=== PATIENT | male | born 1980 | race Caucasian/White ===

== ENCOUNTER 2017-06-18 13:19 | Observation (INO) | payer BC ==
[2017-06-18] MEDS ORDERED: Cardizem CD 120 MG PO STA (13:45)
--- NOTE | 2017-06-18 13:53 | ERPHSYRPT ---
- History of Present Illness Time Seen by Provider: 06/18/17 13:47 Source: patient, family Exam Limitations: no limitations Patient Subjective Stated Complaint: patient has melanie experiencing dizzyness nad chest pain off nad on for 3 days got lightheaded at mosque this morning came into the ER Triage Nursing Assessment: pt alert and orientedx3, gait steady, ambualtes by self, pupils perrla3, lung sounds clear, pulses equal bialteral radius, handgrips equal and strong, skin warm dry and intact. no other abnormalities noted Physician History: The patient is a 36-year-old male who comes in complaining that during mosque at about 11 AM this morning he became lightheaded and nearly passed out. He comes to the ER 2-1/2 hours later still not feeling well. 2 days ago he had some dizziness and mild chest pain. This lasted only briefly and resolved. Today he was also sweaty. His past medical history is unremarkable. Timing/Duration: today, hour(s) (2), intermittent Severity: moderate Modifying Factors: Improves With: nothing Associated Symptoms: other (light headed) Allergies/Adverse Reactions: No Known Drug Allergies Allergy (Unverified 03/03/13 20:37) Hx Tetanus, Diphtheria Vaccination/Date Given: Yes Hx Influenza Vaccination/Date Given: No Hx Pneumococcal Vaccination/Date Given: No Immunizations Up to Date: Yes - Review of Systems Constitutional: No Fever, No Chills Eyes: No Symptoms Ears, Nose, & Throat: No Symptoms Respiratory: No Cough, No Dyspnea Cardiac: Palpitations Abdominal/Gastrointestinal: No Abdominal Pain, No Nausea, No Vomiting, No Diarrhea Genitourinary Symptoms: No Dysuria Musculoskeletal: No Back Pain, No Neck Pain Skin: No Rash Neurological: No Dizziness, No Focal Weakness, No Sensory Changes Psychological: No Symptoms Endocrine: No Symptoms Hematologic/Lymphatic: No Symptoms Immunological/Allergic: No Symptoms All Other Systems: Reviewed and Negative - Past Medical History Pertinent Past Medical History: Yes Neurological History: No Pertinent History ENT History: No Pertinent History Cardiac History: No Pertinent History Respiratory History: No Pertinent History Endocrine Medical History: No Pertinent History Musculoskeletal History: No Pertinent History GI Medical History: No Pertinent History History: No Pertinent History Psycho-Social History: No Pertinent History Male Reproductive Disorders: No Pertinent History - Past Surgical History Past Surgical History: Yes Neuro Surgical History: No Pertinent History Cardiac: No Pertinent History Respiratory: No Pertinent History Gastrointestinal: No Pertinent History Genitourinary: No Pertinent History Musculoskeletal: Other Male Surgical History: No Pertinent History Other Surgical History: FINGER SX - Social History Smoking Status: Never smoker Exposure to second hand smoke: Yes Drug Use: none Patient Lives Alone: No - Nursing Vital Signs Nursing Vital Signs: Initial Vital Signs Temperature 98.1 F 06/18/17 13:19 Pulse Rate 99 H 06/18/17 13:19 Respiratory Rate 18 06/18/17 13:19 Blood Pressure 113/86 06/18/17 13:19 O2 Sat by Pulse Oximetry 96 06/18/17 13:19 Pain Scale Pain Intensity 0 - Physical Exam General Appearance: no apparent distress, alert Eye Exam: PERRL/EOMI, eyes nml inspection Ears, Nose, Throat Exam: normal ENT inspection, TMs normal, pharynx normal, moist mucous membranes Neck Exam: normal inspection, non-tender, supple, full range of motion Respiratory Exam: normal breath sounds, lungs clear, No respiratory distress Cardiovascular Exam: tachycardia Gastrointestinal/Abdomen Exam: soft, normal bowel sounds, No tenderness, No mass Rectal Exam: not done Back Exam: normal inspection, normal range of motion, No CVA tenderness, No vertebral tenderness Extremity Exam: normal inspection, normal range of motion, pelvis stable Neurologic Exam: alert, oriented x 3, cooperative, normal mood/affect, nml cerebellar function, nml station & gait, sensation nml, No motor deficits Skin Exam: normal color, warm, dry, No rash Lymphatic Exam: No adenopathy SpO2 Interpretation: normal SpO2: 96 Oxygen Delivery: Room Air - Course EKG Interpreted by Me: RATE, SVT, NORMAL AXIS, NORMAL ST-T, Other (after valsalva, SVT resolved.) - Radiology Exams Chest X-ray Interpretation: Interpreted by me, Negative Ordered Tests: Active Orders 24 hr Category Date Time Status EKG-ER Only STAT Care 06/18/17 13:42 Active IV Insertion STAT Care 06/18/17 13:42 Active CHEST 2 VIEWS (PA AND LAT) Stat Exams 06/18/17 13:42 Taken CBC W DIFF Stat Lab 06/18/17 13:35 Completed CMP Stat Lab 06/18/17 13:35 Completed Lactic Acid Stat Lab 06/18/17 14:53 Ordered TROPONIN Q3H Lab 06/18/17 13:35 Received TROPONIN Q3H Lab 06/18/17 16:45 Ordered TROPONIN Q3H Lab 06/18/17 19:45 Ordered TROPONIN Q3H Lab 06/18/17 22:45 Ordered TROPONIN Q3H Lab 06/19/17 01:45 Ordered Medication Summary Discontinued Medications Generic Name Dose Route Start Last Admin Trade Name Freq PRN Reason Stop Dose Admin Diltiazem HCl 120 mg 06/18/17 13:45 06/18/17 14:21 Cardizem Cd 120 Mg PO 06/18/17 13:46 120 mg DAILY STA Administration Lab/Rad Data: Laboratory Result Diagrams 06/18/17 13:35 06/18/17 13:35 Laboratory Results 06/18/17 06/18/17 Range/Units 13:35 13:35 WBC 10.5 (4.0-10.5) K/mm3 RBC 5.36 (4.1-5.6) M/mm3 Hgb 16.4 (12.5-18.0) gm/dl Hct 45.0 (42-50) % MCV 84.0 (78-100) fl MCH 30.6 (26-32) pg MCHC 36.4 H (32-36) g/dl RDW 12.0 (11.5-14.0) % Plt Count 289 (150-450) K/mm3 MPV 9.9 H (6-9.5) fl Gran % 60.6 (36.0-66.0) % Lymphocytes % 27.6 (24.0-44.0) % Monocytes % 11.0 (0.0-12.0) % Eosinophils % 0.5 (0.00-5.0) % Basophils % 0.3 (0.0-0.4) % Basophils # 0.03 (0-0.4) Sodium 134 L (136-145) mEq/L Potassium 4.0 (3.5-5.1) mEq/L Chloride 96 L (98-107) mEq/L Carbon Dioxide 23.9 (21-32) mEq/L Anion Gap 18.2 H (5-15) MEQ/L BUN 14 (9-20) mg/dL Creatinine 1.14 (0.55-1.30) mg/dl Estimated GFR > 60 ML/MIN Glucose 529 H* (70-110) MG/DL Calcium 8.8 (8.5-10.1) mg/dL Total Bilirubin 0.60 (0.2-1.0) mg/dL AST 20 (15-37) U/L ALT 30 (12-78) U/L Alkaline Phosphatase 95 (46-116) U/L Serum Total Protein 7.3 (6.4-8.2) gm/dL Albumin 3.6 (3.4-5.0) g/dL - Progress Progress: improved Progress Note: 06/18/17 13:51 Upon entry into the ER the first EKG showed the patient to be in SVT with a heart rate of 197 bpm. The patient performed Valsalva maneuvers with resolution of SVT. The post Valsalva EKG showed a heart rate of 100 bpm. Discussed with : Edin Will see patient in: hospital (observation) Counseled pt/family regarding: lab results, diagnosis, rad results - Departure Time of Disposition: 14:59 Departure Disposition: Observation (per Dr Jesus) Clinical Impression: SVT (supraventricular tachycardia), Hyperglycemia Condition: Stable Critical Care Time: No Referrals: LEONID TRISTAN, [employer] BENCH [Primary Care Provider] -
[2017-06-18 14:03] LABS: BASOPHIL % 0.3 % (0.0-0.4); Basophil (Absolute #) 0.03 (0-0.4); Eosinophil % 0.5 % (0.00-5.0); Eosinophil (Absolute #) 0.05 (0-0.5); Granulocyte Absolute (ANC) 6.37 (1.4-6.9); Granulocytes % 60.6 % (36.0-66.0); Hemoglobin 16.4 gm/dl (12.5-18.0); Lymphocyte (Absolute #) 2.89 (1.0-4.6); Lymphocytes % 27.6 % (24.0-44.0); Mean Corpuscular Hemoglobin 30.6 pg (26-32); Mean Corpuscular Hgb Concent. 36.4 g/dl (32-36); Mean Platelet Volume 9.9 fl (6-9.5); Monocyte (Absolute #) 1.15 (0.0-1.3); Platelet Count 289 K/mm3 (150-450); Red Blood Count 5.36 M/mm3 (4.1-5.6); White Blood Count 10.5 K/mm3 (4.0-10.5)
[2017-06-18 14:24] LABS: ALBUMIN 3.6 g/dL (3.4-5.0); ALKALINE PHOSPHATASE 95 U/L (46-116); ANION GAP 18.2 MEQ/L (5-15); BLOOD UREA NITROGEN 14 mg/dL (9-20); CHLORIDE 96 mEq/L (98-107); Calcium 8.8 mg/dL (8.5-10.1); Carbon Dioxide 23.9 mEq/L (21-32); Creatinine 1 1.14 mg/dl (0.55-1.30); EST GLOMERULAR FILTRATION RATE > 60 ML/MIN; SGOT/AST 20 U/L (15-37); SGPT/ALT 30 U/L (12-78); SODIUM 134 mEq/L (136-145); Total Protein 7.3 gm/dL (6.4-8.2)
[2017-06-18 14:42] LABS: Glucose 529 MG/DL (70-110)
[2017-06-18] MEDS ORDERED: NovoLIN R SQ ONE (14:58)
[2017-06-18] MEDS ORDERED: NovoLIN R ONE (15:09)
[2017-06-18] MEDS: Sodium Chloride 0.9% 1000 ML 1,000 ML IV SCH (16:26)
[2017-06-18] MEDS: NovoLIN R SQ PRN ×2 (17:35→20:07)
[2017-06-18] MEDS ORDERED: NovoLOG Insulin ONE (17:47)
[2017-06-18] MEDS ORDERED: Lantus Insulin SQ ONE (20:00)
--- NOTE | 2017-06-18 20:57 | XRAY ---
Indication: Cough. Comparison: None PA/lateral chest demonstrates normal heart, lungs, and bony thorax.
[2017-06-19 02:18] LABS: Granulocyte Absolute (ANC) 3.66 (1.4-6.9); Hematocrit 38.6 % (42-50); Hemoglobin 14.1 gm/dl (12.5-18.0); Mean Cell Volume 84.5 fl (78-100); Mean Corpuscular Hemoglobin 30.9 pg (26-32); Mean Corpuscular Hgb Concent. 36.5 g/dl (32-36); Mean Platelet Volume 9.3 fl (6-9.5); Platelet Count 257 K/mm3 (150-450); Red Blood Count 4.57 M/mm3 (4.1-5.6); Red Cell Distribution Width 11.9 % (11.5-14.0); White Blood Count 7.1 K/mm3 (4.0-10.5)
[2017-06-19] MEDS: Sodium Chloride 0.9% 1000 ML 1,000 ML IV SCH ×3 (02:22→23:09)
[2017-06-19 02:33] LABS: ANION GAP 11.3 MEQ/L (5-15); BLOOD UREA NITROGEN 18 mg/dL (9-20); CHLORIDE 103 mEq/L (98-107); Calcium 8.3 mg/dL (8.5-10.1); Carbon Dioxide 29.3 mEq/L (21-32); Creatinine 1 0.82 mg/dl (0.55-1.30); EST GLOMERULAR FILTRATION RATE > 60 ML/MIN; Glucose 251 MG/DL (70-110); SODIUM 140 mEq/L (136-145)
[2017-06-19 02:44] LABS: Risk Ratio 5.5
[2017-06-19 03:19] LABS: ATYPICAL LYMPHS 5 %; BAND 1 % (0.0-2.0); Eosinophil 3 % (0.00-3.0); Lymphocytes 29 % (24-44); Monocyte 11 % (0.0-12.0); Neutrophils 51 % (36.-66.); Total Cells Counted 100
[2017-06-19 03:20] LABS: Platelet Estimate NORMAL (NORMAL)
[2017-06-19] MEDS ORDERED: NovoLIN R ONE (03:45)
[2017-06-19] MEDS: NovoLIN R SQ PRN ×5 (03:47→21:27)
--- NOTE | 2017-06-19 08:40 | PCM.HP ---
History of Present Illness - Chief Complaint Chief Complaint: SVT, Positive CTNI History of Present Illness: is a 36 year old male who presented to the ER yesterday after alevism, he had intermittent chest pain and dizziness for the past 3 days. He was found to have SVT on arrival with elevated troponin, SVT apparently resolved with valsalva. Patient has been started on metoprolol and feels well now, has not had any issues on telemetry overnight. - Review of Systems Constitutional: No Fever, No Chills Respiratory: No Cough, No Short Of Breath Cardiac: Chest Pain, Palpitations Abdominal/Gastrointestinal: No Abdominal Pain, No Nausea, No Vomiting, No Diarrhea Skin: No Rash Neurological: Dizziness Psychological: No Symptoms All Other Systems: Reviewed and Negative Medications & Allergies Home Medications: Home Medication List No Reportable Medications [No Reported Medications] 06/18/17 [History Confirmed 06/18/17] Allergies/Adverse Reactions: Allergies Allergy/AdvReac Type Severity Reaction Status Date / Time No Known Drug Allergies Allergy Unverified 03/03/13 20:37 - Past Medical History Past Medical History: Yes Neurological History: No Pertinent History ENT History: No Pertinent History Cardiac History: High Cholesterol, Hypertension Respiratory History: No Pertinent History Endocrine Medical History: Diabetes Type II Musculoskelatal History: No Pertinent History GI Medical History: No Pertinent History History: No Pertinent History Pyscho-Social History: No Pertinent History Male Reproductive Disorders: No Pertinent History - Past Surgical History Past Surgical History: Yes Neuro Surgical History: No Pertinent History Cardiac History: No Pertinent History Respiratory Surgery: No Pertinent History GI Surgical History: No Pertinent History Genitourinary Surgical Hx: No Pertinent History Musculskeletal Surgical Hx: Other Male Surgical History: No Pertinent History Other Surgical History: FINGER SX - Social History Smoking Status: Never smoker Exposure to second hand smoke: Yes Alcohol: None Drug Use: none - Physical Exam Vital Signs: Vital Signs - 24 hr Temp Pulse Pulse Resp BP Pulse Ox 06/19/17 07:37 98.4 F 88 20 126/82 97 06/19/17 04:00 98.3 F 86 19 118/83 94 L 06/19/17 00:00 98.7 F 92 H 18 101/64 94 L 06/18/17 20:00 98.6 F 102 H 18 108/67 95 06/18/17 15:48 98.5 F 105 H 20 120/75 06/18/17 15:33 98.5 F 105 H 120/75 06/18/17 15:11 106 H 16 111/80 96 06/18/17 15:04 96 06/18/17 14:23 114 H 127/86 06/18/17 14:09 105 H 20 113/78 98 06/18/17 13:19 98.1 F 99 H 18 113/86 96 General Appearance: no apparent distress, alert Neurologic Exam: alert, oriented x 3, cooperative, normal mood/affect, nml cerebellar function, nml station & gait, sensation nml, No motor deficits Eye Exam: PERRL/EOMI, eyes nml inspection Respiratory Exam: normal breath sounds, lungs clear, No respiratory distress Cardiovascular Exam: regular rate/rhythm, normal heart sounds, normal peripheral pulses Gastrointestinal/Abdomen Exam: soft, normal bowel sounds, No tenderness, No mass Extremity Exam: normal inspection, normal range of motion, pelvis stable Skin Exam: normal color, warm, dry, No rash Results - Labs Lab/Micro Results: Accuchecks Date 06/19/17 Date 06/19/17 Date 06/18/17 Date 06/18/17 Time 04:00 Time 00:30 Time 20:00 Time 17:35 Accucheck Value: 254 Accucheck Value: 269 Accucheck Value: 258 Accucheck Value: 313 Lab Results-Last 24 Hours 06/18/17 06/18/17 06/18/17 Range/Units 17:10 19:51 23:35 WBC (4.0-10.5) K/mm3 RBC (4.1-5.6) M/mm3 Hgb (12.5-18.0) gm/dl Hct (42-50) % MCV (78-100) fl MCH (26-32) pg MCHC (32-36) g/dl RDW (11.5-14.0) % Plt Count (150-450) K/mm3 MPV (6-9.5) fl Segmented Neutrophils (36.-66.) % Band Neutrophils (0.0-2.0) % Lymphocytes (Manual) (24-44) % Monocytes (Manual) (0.0-12.0) % Eosinophils (Manual) (0.00-3.0) % Differential Comment Atypical Lymphocytes % Platelet Estimate (NORMAL) Sodium (136-145) mEq/L Potassium (3.5-5.1) mEq/L Chloride (98-107) mEq/L Carbon Dioxide (21-32) mEq/L Anion Gap (5-15) MEQ/L BUN (9-20) mg/dL Creatinine (0.55-1.30) mg/dl Estimated GFR ML/MIN Glucose (70-110) MG/DL Lactic Acid (0.4-2.0) Calcium (8.5-10.1) mg/dL Troponin I 0.194 H* 0.240 H* 0.247 H* (0.000-0.056) ng/ml Triglycerides (30-200) mg/dL Cholesterol (100-200) mg/dL LDL Cholesterol (5-99) mg/dL HDL Cholesterol (35-60) mg/dL Heart Disease Risk Ratio 06/19/17 06/19/17 06/19/17 Range/Units 02:12 02:12 02:12 WBC 7.1 (4.0-10.5) K/mm3 RBC 4.57 (4.1-5.6) M/mm3 Hgb 14.1 (12.5-18.0) gm/dl Hct 38.6 L (42-50) % MCV 84.5 (78-100) fl MCH 30.9 (26-32) pg MCHC 36.5 H (32-36) g/dl RDW 11.9 (11.5-14.0) % Plt Count 257 (150-450) K/mm3 MPV 9.3 (6-9.5) fl Segmented Neutrophils 51 (36.-66.) % Band Neutrophils 1 (0.0-2.0) % Lymphocytes (Manual) 29 (24-44) % Monocytes (Manual) 11 (0.0-12.0) % Eosinophils (Manual) 3 (0.00-3.0) % Differential Comment NORMAL Atypical Lymphocytes 5 % Platelet Estimate NORMAL (NORMAL) Sodium 140 (136-145) mEq/L Potassium 4.0 (3.5-5.1) mEq/L Chloride 103 (98-107) mEq/L Carbon Dioxide 29.3 (21-32) mEq/L Anion Gap 11.3 (5-15) MEQ/L BUN 18 (9-20) mg/dL Creatinine 0.82 (0.55-1.30) mg/dl Estimated GFR > 60 ML/MIN Glucose 251 H (70-110) MG/DL Lactic Acid (0.4-2.0) Calcium 8.3 L (8.5-10.1) mg/dL Troponin I 0.213 H* (0.000-0.056) ng/ml Triglycerides (30-200) mg/dL Cholesterol (100-200) mg/dL LDL Cholesterol (5-99) mg/dL HDL Cholesterol (35-60) mg/dL Heart Disease Risk Ratio 06/19/17 06/19/17 Range/Units 02:12 02:20 WBC (4.0-10.5) K/mm3 RBC (4.1-5.6) M/mm3 Hgb (12.5-18.0) gm/dl Hct (42-50) % MCV (78-100) fl MCH (26-32) pg MCHC (32-36) g/dl RDW (11.5-14.0) % Plt Count (150-450) K/mm3 MPV (6-9.5) fl Segmented Neutrophils (36.-66.) % Band Neutrophils (0.0-2.0) % Lymphocytes (Manual) (24-44) % Monocytes (Manual) (0.0-12.0) % Eosinophils (Manual) (0.00-3.0) % Differential Comment Atypical Lymphocytes % Platelet Estimate (NORMAL) Sodium (136-145) mEq/L Potassium (3.5-5.1) mEq/L Chloride (98-107) mEq/L Carbon Dioxide (21-32) mEq/L Anion Gap (5-15) MEQ/L BUN (9-20) mg/dL Creatinine (0.55-1.30) mg/dl Estimated GFR ML/MIN Glucose (70-110) MG/DL Lactic Acid 0.9 (0.4-2.0) Calcium (8.5-10.1) mg/dL Troponin I (0.000-0.056) ng/ml Triglycerides 167 (30-200) mg/dL Cholesterol 180 (100-200) mg/dL LDL Cholesterol 127 H (5-99) mg/dL HDL Cholesterol 33 L (35-60) mg/dL Heart Disease Risk Ratio 5.5 Accuchecks Date 06/19/17 Date 06/19/17 Date 06/18/17 Date 06/18/17 Time 04:00 Time 00:30 Time 20:00 Time 17:35 Accucheck Value: 254 Accucheck Value: 269 Accucheck Value: 258 Accucheck Value: 313 Assessment/Plan (1) SVT (supraventricular tachycardia) Current Visit: Yes Status: Acute Assessment & Plan: resolved, continue lopressor at this time Code(s): I47.1 - SUPRAVENTRICULAR TACHYCARDIA (2) Elevated troponin Current Visit: Yes Status: Acute Assessment & Plan: trending down since resolution of SVT, will continue to monitor. Dr Cassidy will have f/u as outpatient. Code(s): R74.8 - ABNORMAL LEVELS OF OTHER SERUM ENZYMES (3) Uncontrolled type 2 diabetes mellitus Current Visit: Yes Status: Acute Assessment & Plan: will restart metformin and currently on lantus. patient has been off of meds for over a year, simply noncompliant. discussed need for followup and risks of uncontrolled diabetes. Code(s): E11.65 - TYPE 2 DIABETES MELLITUS WITH HYPERGLYCEMIA
[2017-06-19] MEDS ORDERED: Cardizem CD 120 MG PO SCH (10:00)
[2017-06-19] MEDS: Ecotrin 325 MG PO SCH (10:07)
[2017-06-19] MEDS: Lopressor 25MG Tab PO SCH ×2 (10:07→21:27)
[2017-06-19] MEDS: Lantus Insulin SQ SCH (10:08)
[2017-06-19] MEDS: Glucophage 500 MG PO SCH ×2 (10:13→16:45)
--- NOTE | 2017-06-19 11:22 | CONS ---
CONSULT DATE: 06/18/2017 BRIEF HISTORY: This is a 36 year-old male who was seen because of narrow QRS tachycardia and chest pain. The symptoms started while he was in yarsanism. He started to have some episodes of palpitation associated with some vague chest discomfort. He felt lightheaded. He eventually ended up in the emergency room. Initial EKG did show narrow QRS tachycardia which appears to be supraventricular in origin. His heart rate has come down. Initially his blood sugar was in the 500's. The patient stated that he has been having intermittent chest pain for a few weeks now which he described as vague unrelated to effort with no increase in frequency or duration. He has never had myocardial infarction or heart failure. He denies any paroxysmal nocturnal dyspnea or orthopnea. No syncopal attacks. CARDIAC RISK FACTORS: He has diabetes. He does not smoke. No hypertension. He has hyperlipidemia. FAMILY HISTORY: Positive for coronary artery disease. Father diagnosed with some form of coronary artery disease and had recent stroke and stay in the [facility]. REVIEW OF SYSTEMS: IMPREGNATOR HELPER: There is no history of stroke. No seizures. No chronic headache. No visual disturbance. RESPIRATORY: No chronic cough. No hemoptysis. GI: He denies nausea. No vomiting. No history of peptic ulcer or colon disorder. : Negative for dysuria or hematuria. PERIPHERAL VASCULAR: Negative for deep venous thrombosis or claudication. MUSCULOSKELETAL: Some joint pains. SKIN: No active dermatological problems. ENDOCRINE: No history of thyroid disorder in the past. CONSTITUTIONAL: No significant weight gain or weight loss. PAST SURGICAL HISTORY: Finger surgery. MEDICATIONS: Diltiazem 120 mg daily, insulin coverage. SOCIAL HISTORY: He is engaged. 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 There is no significant alcohol intake. PHYSICAL EXAMINATION: His blood pressure is 111/80, heart rate 106, respirations about 16. GENERAL: The patient is a young male who is alert, oriented, who is not in any form of distress. He is currently chest pain free. HEENT: Unremarkable. NECK: No carotid bruit. CHEST: The breath sounds are clear. CARDIAC: Heart tones are clear. No audible gallop. The rhythm is regular. There is apical systolic murmur. ABDOMEN: Soft with normal bowel sounds. EXTREMITIES: Negative for edema. Palpable distal pulses. LAB DATA AND DIAGNOSTIC TESTS: The EKG shows supraventricular tachycardia. Subsequent EKG showed normal sinus rhythm, no significant ST-T displacement. IMPRESSION: In essence the patient had an episode of supraventricular tachycardia which was associated with some chest pain and the chest pain is most likely secondary to tachyarrhythmia and that has resolved. His troponin I is mildly elevated and most likely related to the tachycardia. He does have multiple cardiac risk factors. If he remains hemodynamically stable and angina-free will schedule him for a stress test otherwise if his troponin I's continuously rise significantly we might proceed with a heart cath. Meanwhile, the patient will be placed on aspirin. Lipid panel is ordered. Will switch him to beta heidi. It was emphasized to the patient about the need to become compliant particularly in regards to the management of his diabetes and it is likely the arrhythmia triggered metabolic related to his diabetes. I will follow up with you.
[2017-06-20] MEDS: NovoLIN R SQ PRN ×2 (00:04→04:06)
[2017-06-20 05:54] LABS: BASOPHIL % 0.4 % (0.0-0.4); Basophil (Absolute #) 0.02 (0-0.4); Eosinophil % 1.3 % (0.00-5.0); Eosinophil (Absolute #) 0.07 (0-0.5); Granulocytes % 60.6 % (36.0-66.0); Hematocrit 39.8 % (42-50); Hemoglobin 14.5 gm/dl (12.5-18.0); Lymphocyte (Absolute #) 1.44 (1.0-4.6); Lymphocytes % 25.7 % (24.0-44.0); Mean Cell Volume 85.2 fl (78-100); Mean Corpuscular Hgb Concent. 36.4 g/dl (32-36); Mean Platelet Volume 9.3 fl (6-9.5); Monocyte (Absolute #) 0.67 (0.0-1.3); Platelet Count 244 K/mm3 (150-450); Red Blood Count 4.67 M/mm3 (4.1-5.6); Red Cell Distribution Width 11.8 % (11.5-14.0); White Blood Count 5.6 K/mm3 (4.0-10.5)
[2017-06-20 06:55] LABS: ANION GAP 11.3 MEQ/L (5-15); BLOOD UREA NITROGEN 11 mg/dL (9-20); CHLORIDE 105 mEq/L (98-107); Calcium 8.3 mg/dL (8.5-10.1); Creatinine 1 0.62 mg/dl (0.55-1.30); EST GLOMERULAR FILTRATION RATE > 60 ML/MIN; Glucose 167 MG/DL (70-110); Potassium 4.1 mEq/L (3.5-5.1); SODIUM 140 mEq/L (136-145); TROPONIN 0.046 ng/ml (0.000-0.056)
[2017-06-20 07:45] VITALS: BP 123/83; PULSE 88; O2SAT 96
[2017-06-20] MEDS: Glucophage 500 MG PO SCH (08:01)
[2017-06-20] MEDS: Lantus Insulin SQ SCH (09:22)
[2017-06-20] MEDS: Ecotrin 325 MG PO SCH (09:22)
[2017-06-20] MEDS: Lopressor 25MG Tab PO SCH (09:22)
--- NOTE | 2017-06-20 10:08 | PCM.DS ---
Discharge Summary Date of Admission: 06/18/17 15:30 Admitting Physician: FISH MEREDITH Consults: Consults on Case 06/18/17 17:59 Consult Cardiology ROUTINE Primary Care Provider: JAG AMBROSIO PATEL Allergies Allergies No Known Drug Allergies Allergy (Unverified 03/03/13 20:37) Hospital Summary - Hospital Course Hospital Course: patient was admitted with SVT, had a positive troponin on arrival. SVT resolved with valsalva. He has been in normal rhythm, was seen by cardiology and plans to f/u as outpatient. troponin has trended down. - Vitals & Intake/Output Vital Signs: Vital Signs Temperature 97.9 F 06/20/17 07:44 Pulse Rate 88 06/20/17 07:44 Respiratory Rate 18 06/20/17 07:44 Blood Pressure 123/83 06/20/17 07:44 O2 Sat by Pulse Oximetry 96 06/20/17 07:44 Intake & Output: Intake & Output 06/17/17 06/18/17 06/19/17 06/20/17 11:59 11:59 11:59 11:59 Intake Total 3018 2520 Balance 3018 2520 Weight 81.6 kg - Lab Result Diagrams: 06/20/17 05:44 06/20/17 05:44 Lab Results-Last 24 Hrs: Accuchecks Date 06/20/17 Date 06/20/17 Date 06/19/17 Date 06/19/17 Date 06/19/17 Time 05:02 Time 00:00 Time 20:00 Time 16:00 Time 12:00 Accucheck Value: 162 Accucheck Value: 202 Accucheck Value: 276 Accucheck Value: 297 Accucheck Value: 241 Accucheck Value: 293 Lab Results-Last 24 Hours 06/19/17 06/19/17 06/20/17 Range/Units 08:42 11:05 05:44 WBC 5.6 (4.0-10.5) K/mm3 RBC 4.67 (4.1-5.6) M/mm3 Hgb 14.5 (12.5-18.0) gm/dl Hct 39.8 L (42-50) % MCV 85.2 (78-100) fl MCH 31.0 (26-32) pg MCHC 36.4 H (32-36) g/dl RDW 11.8 (11.5-14.0) % Plt Count 244 (150-450) K/mm3 MPV 9.3 (6-9.5) fl Gran % 60.6 (36.0-66.0) % Lymphocytes % 25.7 (24.0-44.0) % Monocytes % 12.0 (0.0-12.0) % Eosinophils % 1.3 (0.00-5.0) % Basophils % 0.4 (0.0-0.4) % Basophils # 0.02 (0-0.4) Sodium (136-145) mEq/L Potassium (3.5-5.1) mEq/L Chloride (98-107) mEq/L Carbon Dioxide (21-32) mEq/L Anion Gap (5-15) MEQ/L BUN (9-20) mg/dL Creatinine (0.55-1.30) mg/dl Estimated GFR ML/MIN Glucose (70-110) MG/DL Hemoglobin A1c 11.0 H (4.5-6.0) Calcium (8.5-10.1) mg/dL Magnesium (1.8-2.4) mg/dL Troponin I 0.081 H* (0.000-0.056) ng/ml 06/20/17 Range/Units 05:44 WBC (4.0-10.5) K/mm3 RBC (4.1-5.6) M/mm3 Hgb (12.5-18.0) gm/dl Hct (42-50) % MCV (78-100) fl MCH (26-32) pg MCHC (32-36) g/dl RDW (11.5-14.0) % Plt Count (150-450) K/mm3 MPV (6-9.5) fl Gran % (36.0-66.0) % Lymphocytes % (24.0-44.0) % Monocytes % (0.0-12.0) % Eosinophils % (0.00-5.0) % Basophils % (0.0-0.4) % Basophils # (0-0.4) Sodium 140 (136-145) mEq/L Potassium 4.1 (3.5-5.1) mEq/L Chloride 105 (98-107) mEq/L Carbon Dioxide 28.0 (21-32) mEq/L Anion Gap 11.3 (5-15) MEQ/L BUN 11 (9-20) mg/dL Creatinine 0.62 (0.55-1.30) mg/dl Estimated GFR > 60 ML/MIN Glucose 167 H (70-110) MG/DL Hemoglobin A1c (4.5-6.0) Calcium 8.3 L (8.5-10.1) mg/dL Magnesium 1.7 L (1.8-2.4) mg/dL Troponin I 0.046 (0.000-0.056) ng/ml Micro Results-Entire Visit: Accuchecks Date 06/20/17 Date 06/20/17 Date 06/19/17 Date 06/19/17 Date 06/19/17 Time 05:02 Time 00:00 Time 20:00 Time 16:00 Time 12:00 Accucheck Value: 162 Accucheck Value: 202 Accucheck Value: 276 Accucheck Value: 297 Accucheck Value: 241 Accucheck Value: 293 - Procedures and Test Procedures and Tests throughout Hospitalization: Therapy Orders & Screens 06/18/17 17:58 EKG STAT Comment: Diagnosis: SVT, Positive CTNI Discharge Exam General Appearance: no apparent distress, alert Skin Exam: normal color, warm, dry Eye Exam: PERRL, EOMI, eyes nml inspection Respiratory Exam: normal breath sounds, lungs clear, No respiratory distress Cardiovascular Exam: regular rate/rhythm, normal heart sounds Gastrointestinal/Abdomen Exam: soft, No tenderness, No mass Extremity Exam: normal inspection, normal range of motion Final Diagnosis/Problem List - Final Discharge Diagnosis/Problem (1) SVT (supraventricular tachycardia) Current Visit: Yes Status: Acute Assessment & Plan: resolved, discontinue home on metoprolol (2) Elevated troponin Current Visit: Yes Status: Acute (3) Uncontrolled type 2 diabetes mellitus Current Visit: Yes Status: Acute Assessment & Plan: restart on po meds. - Discharge Disposition: Home, Self-Care Condition: Stable Prescriptions: New Metformin HCl 500 mg [Glucophage 500 MG] 500 mg PO BIDWM #60 tablet Glipizide 5 mg [Glucotrol 5 MG] 5 mg PO DAILY #30 tablet Metoprolol Tartrate 25 mg [Lopressor 25MG Tab] 25 mg PO BID #60 tab Follow up with: JAG AMBROSIO MD [Primary Care Provider] - 1 Week GENI FROST [ACTIVE STAFF] - 1 Week
== END 2017-06-20 11:15 | disposition home or self-care (01) ==
LOC: ED 13:19 → MED SURG 15:30
PROVIDERS: ADMIT Internal Medicine; ATTEND Family Medicine
DX: I47.1 Supraventricular tachycardia (principal); R79.89 Other specified abnormal findings of blood chemistry; I10 Essential (primary) hypertension; E78.00 Pure hypercholesterolemia, unspecified; E11.65 Type 2 diabetes mellitus with hyperglycemia
CPT/HCPCS: 36000; 36415; 71046; 80048; 80053; 80061; 82962; 83036; 83605; 83721; 83735; 84484; 85025; 93005; 93268; 96360; 96372; 99285; G0378; A9270-GY

== ENCOUNTER 2018-12-28 11:47 | Observation (INO) | payer BC ==
[2018-12-28] MEDS ORDERED: Sodium Chloride 0.9% 1000 ML 1,000 ML IV SCH (12:45)
[2018-12-28 13:27] LABS: Hematocrit 39.2 % (42-50); Hemoglobin 13.5 gm/dl (12.5-18.0); Mean Cell Volume 89.1 fl (78-100); Mean Corpuscular Hemoglobin 30.7 pg (26-32); Mean Corpuscular Hgb Concent. 34.4 g/dl (32-36); Mean Platelet Volume 8.8 fl (6-9.5); Platelet Count 343 K/mm3 (150-450); Red Cell Distribution Width 11.7 % (11.5-14.0); White Blood Count 8.5 K/mm3 (4.0-10.5)
[2018-12-28 13:28] LABS: ALKALINE PHOSPHATASE 66 U/L (38-126); AMYLASE 62 U/L (30-110); ANION GAP 15.3 MEQ/L (5-15); BLOOD UREA NITROGEN 11 mg/dL (9-20); CHLORIDE 102 mmol/L (98-107); Carbon Dioxide 25 mmol/L (22-30); Creatinine 1 0.58 mg/dL (0.66-1.25); Glucose 240 mg/dL (74-106); Potassium 3.5 mmol/L (3.5-5.1); SGOT/AST 32 U/L (17-59); SGPT/ALT 19 U/L (0-50); SODIUM 139 mmol/L (137-145); Total Protein 7.3 g/dL (6.3-8.2)
[2018-12-28] MEDS ORDERED: Lactated Ringers 1,000 ML IV ONE (13:56)
[2018-12-28] MEDS: CEFAZOLIN 2 GM-D5W BAG** 2 GM/50 ML ML IV SCH ×2 (13:56→21:57)
[2018-12-28] MEDS ORDERED: Sensorcaine 0.25% 10 ML ONE (13:56)
[2018-12-28 14:00] LABS: BAND 3 % (0.0-2.0); Eosinophil 5 % (0.00-3.0); Lymphocytes 25 % (24-44); Monocyte 8 % (0.0-12.0); Neutrophils 59 % (36.-66.); Total Cells Counted 100
[2018-12-28 14:01] LABS: Platelet Estimate NORMAL (NORMAL)
[2018-12-28 14:02] LABS: ANISOCYTOSIS 1+; Granulocyte Absolute (ANC) 5.28 (1.4-6.9)
[2018-12-28] MEDS ORDERED: Lactated Ringers 1,000 ML IV SCH (14:30)
[2018-12-28] MEDS ORDERED: MEFOXIN 2 GM PREMIX** 2 GM/50 ML ML IV SCH (15:00)
[2018-12-28 16:16] LABS: Appearance CLEAR (CLEAR); Bilirubin NEGATIVE (NEGATIVE); Blood NEGATIVE Ery/ul (0-5); Glucose >=500 mg/dL (NEGATIVE); Ketones NEGATIVE (NEGATIVE); Leukocyte Esterase NEGATIVE (NEGATIVE); Nitrite NEGATIVE (NEGATIVE); Protein,Urine Dip NEGATIVE (Negative); Specific Gravity 1.033 (1.005-1.025); Urobilinogen NEGATIVE mg/dL (0-1)
[2018-12-28 16:27] LABS: Bacteria NONE SEEN /HPF (NEGATIVE); RBC NONE SEEN /HPF (0-2)
[2018-12-28] MEDS ORDERED: DIPRIVAN 200 MG/20 ML IV ONE (16:29)
[2018-12-28] MEDS ORDERED: Zemuron 100 MG/10 ML ONE ×2 (16:29→17:19)
[2018-12-28] MEDS ORDERED: Quelicin Fliptop 200 MG/10 ML ONE (16:29)
[2018-12-28] MEDS ORDERED: SUBLIMAZE 100 MCG/2 ML ONE ×2 (16:30→18:29)
[2018-12-28] MEDS ORDERED: BRIDION 200MG/2ML IV ONE (16:42)
[2018-12-28] MEDS ORDERED: Zofran 4 MG/2 ML VIAL ONE ×3 (16:42→19:16)
[2018-12-28] MEDS ORDERED: TORAdol 30 mg Injection ONE (16:42)
[2018-12-28] MEDS ORDERED: Decadron 4 MG INJ ONE (16:42)
[2018-12-28] MEDS ORDERED: DILAUDID 2 MG INJECTION ONE (18:30)
[2018-12-28] MEDS: Zofran 4 MG/2 ML VIAL IV PRN (19:18)
[2018-12-28] MEDS: D5W/0.45NS W/ 20mEq KCl 1000 ML 1,000 ML IV SCH (20:04)
[2018-12-28] MEDS: MORPHINE SULFATE 2 MG INJ IV PRN ×2 (20:04→22:30)
[2018-12-28] MEDS ORDERED: NovoLOG Insulin SQ PRN (21:04)
[2018-12-28] MEDS: NEURONTIN 300 MG PO SCH (21:57)
[2018-12-28] MEDS: Lopressor 25MG Tab PO SCH (21:57)
[2018-12-28] MEDS: Zosyn 3.375GM/100 Ml D5W 3.375 GM/100 ML IVPB IV SCH (23:33)
[2018-12-29] MEDS: MORPHINE SULFATE 2 MG INJ IV PRN ×4 (01:20→21:50)
[2018-12-29] MEDS: NORCO 5/325 MG PO PRN ×2 (03:47→10:43)
[2018-12-29] MEDS: Zosyn 3.375GM/100 Ml D5W 3.375 GM/100 ML IVPB IV SCH ×3 (05:19→18:33)
[2018-12-29] MEDS: CEFAZOLIN 2 GM-D5W BAG** 2 GM/50 ML ML IV SCH (06:01)
[2018-12-29] MEDS: Zofran 4 MG/2 ML VIAL IV PRN (06:16)
[2018-12-29 06:23] LABS: Hematocrit 37.4 % (42-50); Hemoglobin 12.6 gm/dl (12.5-18.0); Mean Cell Volume 89.7 fl (78-100); Mean Corpuscular Hemoglobin 30.2 pg (26-32); Mean Corpuscular Hgb Concent. 33.7 g/dl (32-36); Mean Platelet Volume 8.8 fl (6-9.5); Platelet Count 310 K/mm3 (150-450); Red Blood Count 4.17 M/mm3 (4.1-5.6); Red Cell Distribution Width 11.6 % (11.5-14.0); White Blood Count 11.6 K/mm3 (4.0-10.5)
[2018-12-29] MEDS: D5W/0.45NS W/ 20mEq KCl 1000 ML 1,000 ML IV SCH ×2 (08:29→18:32)
[2018-12-29] MEDS ORDERED: MEDICATION INTERVENTION MC SCH (09:00)
--- NOTE | 2018-12-29 09:42 | PCM.HP ---
History of Present Illness - Chief Complaint Chief Complaint: acute appendicitis History of Present Illness: is a 38 year old male. 38 yr old male with pMHX of DM and HTN seen this am following admission for acute appendicitis seen on CT scan. Patient reports he was feeling ill and having abdominal pain a week ago . He reports that he was seen in clinic on the following for abdominal pain diarrhea and nausea. He states a CT scan was ordered. Patient reports he had the CT scan and was notified of the results and instructed to come directly to the hospital. Patient reports that he is doing well this am following surgery. He reports he has tolerated PO intake since having the surgery. He reports tenderness where the drain was placed. No other reported concerns at this time. - Review of Systems Constitutional: No Fever, No Chills Eyes: No Double Vision Respiratory: No Short Of Breath Cardiac: No Chest Pain Abdominal/Gastrointestinal: Abdominal Pain, Nausea, Diarrhea (Patient started with nausea and diarrhea on ), No Vomiting, No Constipation Musculoskeletal: No Back Pain Neurological: No Symptoms, No Dizziness Psychological: No Symptoms Hematologic/Lymphatic: No Anemia, No Blood Clots Medications & Allergies Home Medications: Home Medication List Empagliflozin/Linagliptin [Glyxambi 25 mg-5 mg Tablet] 1 tab PO DAILY 12/28/18 [ History Confirmed 12/28/18] Gabapentin 600 mg PO TID 12/28/18 [History Confirmed 12/28/18] Lisinopril 5 mg [Zestril 5 MG] 2.5 mg PO DAILY 12/28/18 [History Confirmed 12/28/18] Metformin HCl 500 mg [Glucophage 500 MG] 1,000 mg PO BID 12/28/18 [ History Confirmed 12/28/18] Metoprolol Tartrate 25 mg [Lopressor 25MG Tab] 25 mg PO BID 12/28/18 [ History Confirmed 12/28/18] Allergies/Adverse Reactions: Allergies Allergy/AdvReac Type Severity Reaction Status Date / Time No Known Drug Allergies Allergy Unverified 03/03/13 20:37 - Past Medical History Past Medical History: Yes Neurological History: No Pertinent History ENT History: No Pertinent History Cardiac History: Hypertension Respiratory History: No Pertinent History Endocrine Medical History: Diabetes Type II Musculoskelatal History: No Pertinent History GI Medical History: No Pertinent History History: No Pertinent History Pyscho-Social History: No Pertinent History Male Reproductive Disorders: No Pertinent History - Past Surgical History Past Surgical History: Yes Neuro Surgical History: No Pertinent History Cardiac History: No Pertinent History Respiratory Surgery: No Pertinent History GI Surgical History: No Pertinent History Genitourinary Surgical Hx: No Pertinent History Musculskeletal Surgical Hx: Other Male Surgical History: No Pertinent History Other Surgical History: FINGER SX - Social History Smoking Status: Never smoker Exposure to second hand smoke: Yes Alcohol: None Drug Use: none - Physical Exam Vital Signs: Vital Signs - 24 hr Temp Pulse Resp BP Pulse Ox 12/29/18 08:38 97.9 F 78 18 98/57 94 L 12/29/18 08:00 18 12/29/18 04:47 98.5 F 83 19 107/67 94 L 12/29/18 04:00 18 12/29/18 00:00 98.0 F 82 19 114/73 94 L 12/28/18 22:00 97.8 F 82 18 114/71 93 L 12/28/18 21:00 97.8 F 83 119 H 118/71 94 L 12/28/18 20:30 97.7 F 85 18 112/70 94 L 12/28/18 20:00 97.6 F 80 18 112/71 95 12/28/18 19:45 97.7 F 84 18 111/67 94 L 12/28/18 19:30 97.5 F 83 18 116/73 95 12/28/18 19:15 97.4 F 87 19 125/75 95 12/28/18 16:00 98.1 F 83 16 105/71 96 12/28/18 13:35 99.5 F 96 H 20 108/71 93 L 12/28/18 13:15 99.5 F 96 H 20 108/71 93 L General Appearance: no apparent distress Neurologic Exam: oriented x 3, cooperative, normal mood/affect Eye Exam: eyes nml inspection Ears, Nose, Throat Exam: moist mucous membranes Respiratory Exam: normal breath sounds, lungs clear Cardiovascular Exam: regular rate/rhythm Gastrointestinal/Abdomen Exam: soft, normal bowel sounds, tenderness (Drain intact with minimal bloody/serous drainage), No distention Rectal Exam: No deferred Extremity Exam: normal inspection, No pedal edema Skin Exam: warm, dry Wound Assessment: Skin/Wound Assessment Wound/Incision Assessment Start: 12/28/18 14: 44 Text: Status: Active Freq: Q6H Protocol: Document 12/29/18 08:00 BE (Rec: 12/29/18 08:46 BE [id number]) Wound/Incision Assessment Anterior Abdomen Wound Assessment Shift Assessment Wound Type Incision Dressing Status Dry & Intact Drainage Amount None Drainage Odor None/Absent General Appearance Clean/Dry Primary Dressing Bandaid Comment incision sites, covered with bandaids, CDI, JENNYFER drain noted to RLQ Right Lower Abdomen Drain Type JENNYFER drain Drainage Description Sanguineous Odor None/Absent Results - Labs Lab/Micro Results: Lab Results-Last 24 Hours 12/28/18 12/28/18 12/28/18 Range/Units 12:39 13:00 16:05 WBC 8.5 (4.0-10.5) K/mm3 RBC 4.40 (4.1-5.6) M/mm3 Hgb 13.5 (12.5-18.0) gm/dl Hct 39.2 L (42-50) % MCV 89.1 (78-100) fl MCH 30.7 (26-32) pg MCHC 34.4 (32-36) g/dl RDW 11.7 (11.5-14.0) % Plt Count 343 (150-450) K/mm3 MPV 8.8 (6-9.5) fl Absolute Granulocytes 5.28 (1.4-6.9) Segmented Neutrophils 59 (36.-66.) % Band Neutrophils 3 H (0.0-2.0) % Lymphocytes (Manual) 25 (24-44) % Monocytes (Manual) 8 (0.0-12.0) % Eosinophils (Manual) 5 H (0.00-3.0) % Platelet Estimate NORMAL (NORMAL) RBC Morphology ABNORMAL Anisocytosis 1+ Sodium 139 (137-145) mmol/L Potassium 3.5 (3.5-5.1) mmol/L Chloride 102 (98-107) mmol/L Carbon Dioxide 25 (22-30) mmol/L Anion Gap 15.3 H (5-15) MEQ/L BUN 11 (9-20) mg/dL Creatinine 0.58 L (0.66-1.25) mg/dL Estimated GFR > 60.0 ML/MIN Glucose 240 H (74-106) mg/dL Calcium 9.0 (8.4-10.2) mg/dL Total Bilirubin 0.40 (0.2-1.3) mg/dL AST 32 (17-59) U/L ALT 19 (0-50) U/L Alkaline Phosphatase 66 (38-126) U/L Serum Total Protein 7.3 (6.3-8.2) g/dL Albumin 4.0 (3.5-5.0) g/dL Amylase 62 (30-110) U/L Urine Color STRAW (YELLOW) Urine Appearance CLEAR (CLEAR) Urine pH 7.0 (5-6) Ur Specific [place] 1.033 (1.005-1.025) Urine Protein NEGATIVE (Negative) Urine Ketones NEGATIVE (NEGATIVE) Urine Blood NEGATIVE (0-5) Drew/ul Urine Nitrite NEGATIVE (NEGATIVE) Urine Bilirubin NEGATIVE (NEGATIVE) Urine Urobilinogen NEGATIVE (0-1) mg/dL Ur Leukocyte Esterase NEGATIVE (NEGATIVE) Urine WBC (Auto) NONE (0-5) /HPF Urine RBC (Auto) NONE SEEN (0-2) /HPF U Epithel Cells (Auto) NONE (FEW) /HPF Urine Bacteria (Auto) NONE SEEN (NEGATIVE) /HPF Urine Culture Reflexed NO (NO) Urine Glucose >=500 (NEGATIVE) mg/dL 12/29/18 Range/Units 05:47 WBC 11.6 H (4.0-10.5) K/mm3 RBC 4.17 (4.1-5.6) M/mm3 Hgb 12.6 (12.5-18.0) gm/dl Hct 37.4 L (42-50) % MCV 89.7 (78-100) fl MCH 30.2 (26-32) pg MCHC 33.7 (32-36) g/dl RDW 11.6 (11.5-14.0) % Plt Count 310 (150-450) K/mm3 MPV 8.8 (6-9.5) fl Absolute Granulocytes (1.4-6.9) Segmented Neutrophils (36.-66.) % Band Neutrophils (0.0-2.0) % Lymphocytes (Manual) (24-44) % Monocytes (Manual) (0.0-12.0) % Eosinophils (Manual) (0.00-3.0) % Platelet Estimate (NORMAL) RBC Morphology Anisocytosis Sodium (137-145) mmol/L Potassium (3.5-5.1) mmol/L Chloride (98-107) mmol/L Carbon Dioxide (22-30) mmol/L Anion Gap (5-15) MEQ/L BUN (9-20) mg/dL Creatinine (0.66-1.25) mg/dL Estimated GFR ML/MIN Glucose (74-106) mg/dL Calcium (8.4-10.2) mg/dL Total Bilirubin (0.2-1.3) mg/dL AST (17-59) U/L ALT (0-50) U/L Alkaline Phosphatase (38-126) U/L Serum Total Protein (6.3-8.2) g/dL Albumin (3.5-5.0) g/dL Amylase (30-110) U/L Urine Color (YELLOW) Urine Appearance (CLEAR) Urine pH (5-6) Ur Specific [place] (1.005-1.025) Urine Protein (Negative) Urine Ketones (NEGATIVE) Urine Blood (0-5) Drew/ul Urine Nitrite (NEGATIVE) Urine Bilirubin (NEGATIVE) Urine Urobilinogen (0-1) mg/dL Ur Leukocyte Esterase (NEGATIVE) Urine WBC (Auto) (0-5) /HPF Urine RBC (Auto) (0-2) /HPF U Epithel Cells (Auto) (FEW) /HPF Urine Bacteria (Auto) (NEGATIVE) /HPF Urine Culture Reflexed (NO) Urine Glucose (NEGATIVE) mg/dL Assessment/Plan (1) Acute appendicitis Current Visit: No Status: Acute Assessment & Plan: Patient was admitted for observation. Patient had appendectomy performed by Dr Lr yesterday. Please refer to his operative note for details. Patient continues to have stable vital signs. Minimal drainage in JENNYFER drain. Dressing is clean dry and intact. Abdomen is soft non distended. Will continue to monitor PO intake. Patient can go home once cleared by surgery. Surgeon wrote home scripts for augmentin and pain medication Code(s): K35.80 - UNSPECIFIED ACUTE APPENDICITIS (2) Uncontrolled type 2 diabetes mellitus Current Visit: No Status: Acute Assessment & Plan: Patient has reported hx of DM type 2. Will continue on home dose of medication for diabetes. Patient is only on oral meds for DM. Will continue to monitor BS with bedside accuchecks. Code(s): E11.65 - TYPE 2 DIABETES MELLITUS WITH HYPERGLYCEMIA (3) Hypertension Current Visit: Yes Status: Acute Assessment & Plan: Will continue to monitor and continue on home medications for HTN Code(s): I10 - ESSENTIAL (PRIMARY) HYPERTENSION
[2018-12-29] MEDS ORDERED: LINAGLIPTIN PO SCH (10:00)
[2018-12-29] MEDS ORDERED: EMPAGLIFLOZIN PO SCH (10:00)
[2018-12-29] MEDS: Lopressor 25MG Tab PO SCH ×2 (10:41→21:47)
[2018-12-29] MEDS: Zestril 5 MG PO SCH (10:42)
[2018-12-29] MEDS: NEURONTIN 300 MG PO SCH ×3 (10:42→21:47)
[2018-12-29] MEDS: Glucophage 500 MG PO SCH ×2 (10:45→19:26)
[2018-12-29] MEDS: ENOXAPARIN SODIUM SQ SCH (12:57)
[2018-12-30] MEDS: Zosyn 3.375GM/100 Ml D5W 3.375 GM/100 ML IVPB IV SCH ×4 (00:53→17:40)
[2018-12-30] MEDS: MORPHINE SULFATE 2 MG INJ IV PRN (01:05)
[2018-12-30] MEDS: D5W/0.45NS W/ 20mEq KCl 1000 ML 1,000 ML IV SCH (05:11)
[2018-12-30 06:08] LABS: Hematocrit 38.1 % (42-50); Hemoglobin 12.7 gm/dl (12.5-18.0); Mean Cell Volume 91.4 fl (78-100); Mean Corpuscular Hemoglobin 30.5 pg (26-32); Mean Corpuscular Hgb Concent. 33.3 g/dl (32-36); Platelet Count 312 K/mm3 (150-450); Red Blood Count 4.17 M/mm3 (4.1-5.6); Red Cell Distribution Width 11.9 % (11.5-14.0); White Blood Count 8.7 K/mm3 (4.0-10.5)
[2018-12-30] MEDS: NORCO 5/325 MG PO PRN ×4 (08:07→21:48)
[2018-12-30] MEDS: Glucophage 500 MG PO SCH ×2 (08:08→17:40)
[2018-12-30] MEDS: NEURONTIN 300 MG PO SCH ×3 (09:53→21:39)
[2018-12-30] MEDS: Zestril 5 MG PO SCH (09:53)
[2018-12-30] MEDS: Lopressor 25MG Tab PO SCH ×2 (09:53→21:39)
[2018-12-30] MEDS: ENOXAPARIN SODIUM SQ SCH (12:43)
--- NOTE | 2018-12-30 16:12 | PCM.NOTE ---
Date and Time: 12/30/18 1604 Subjective Assessment: 38 yr old male seen and examined this am. Patient reports that he is doing better than yesterday but still has some abdominal pain. Patient denies any nausea vomiting or constipation. Patient has been getting up and walking. Patient has been tolerating PO intake. He denies any other concerns at this time. - Review of Systems Constitutional: No Fever Eyes: No Vision Changes, No Double Vision Respiratory: No Cough, No Short Of Breath Cardiac: No Chest Pain, No Edema Abdominal/Gastrointestinal: No Abdominal Pain, No Nausea, No Vomiting, No Diarrhea, No Constipation Genitourinary Symptoms: No Dysuria Neurological: No Headache Objective Exam General Appearance: no apparent distress Neurologic Exam: alert, oriented x 3, cooperative, normal mood/affect Skin Exam: normal color, warm Wound Assessment: Skin/Wound Assessment Wound/Incision Assessment Start: 12/28/18 14: 44 Text: Status: Active Freq: Q6H Protocol: Document 12/30/18 14:00 BA (Rec: 12/30/18 14:49 BA [id number]) Wound/Incision Assessment Anterior Abdomen Wound Assessment Shift Assessment Wound Type Incision Dressing Status Dry & Intact Drainage Amount None Drainage Odor None/Absent General Appearance Clean/Dry Primary Dressing Bandaid Comment incision sites, covered with bandaids, CDI, JENNYFER drain noted to RLQ Right Lower Abdomen Drain Type JENNYFER drain Drainage Description Sanguineous Odor None/Absent Wound Photo Photo Taken No Eye Exam: eyes nml inspection Respiratory Exam: normal breath sounds, lungs clear, No chest tenderness Cardiovascular Exam: regular rate/rhythm, normal heart sounds Gastrointestinal/Abdomen Exam: soft, normal bowel sounds, tenderness (Tender with palpation. JENNYFER drain intact with minimal blood tinged drainage. Dressings clean dry and intact. Steri strips intact), No distention, No guarding, No rebound Extremity Exam: normal inspection, No pedal edema OBJECTIVE DATA Vital Signs: Vital Signs - 24 hr Temp Pulse Resp BP Pulse Ox 12/30/18 16:00 98.7 F 84 18 128/65 94 L 12/30/18 12:22 98.1 F 82 18 102/68 4 L 12/30/18 12:00 18 12/30/18 08:00 18 12/30/18 07:58 98.1 F 89 18 104/74 94 L 12/30/18 04:16 98.1 F 80 17 106/71 94 L 12/30/18 04:00 16 12/30/18 00:45 98.2 F 86 18 111/72 94 L 12/30/18 00:00 16 12/29/18 21:00 98.2 F 88 19 104/66 92 L 12/29/18 20:00 19 12/29/18 17:00 97.6 F 86 20 114/71 97 Oxygen-Last 24 hours O2 Percentage 4 Liters = 36% Pain Assessment - Last Documented Pain Intensity 5 Pain Scale Used 0-10 Pain Scale Intake and Output: Intake & Output 12/28/18 12/29/18 12/30/18 12/31/18 11:59 11:59 11:59 11:59 Intake Total 181 4530 Output Total 19995 10 Balance -187 5 -10 Weight 75.7 kg Lab Results: Accuchecks Date 12/30/18 Date 12/30/18 Date 12/29/18 Date 12/29/18 Time 11:30 Time 07:00 Time 22:00 Time 16:30 Accucheck Value: 176 Accucheck Value: 214 Accucheck Value: 180 Accucheck Value: 221 Lab Results-Last 24 Hours 12/30/18 Range/Units 05:00 WBC 8.7 (4.0-10.5) K/mm3 RBC 4.17 (4.1-5.6) M/mm3 Hgb 12.7 (12.5-18.0) gm/dl Hct 38.1 L (42-50) % MCV 91.4 (78-100) fl MCH 30.5 (26-32) pg MCHC 33.3 (32-36) g/dl RDW 11.9 (11.5-14.0) % Plt Count 312 (150-450) K/mm3 MPV 9.0 (6-9.5) fl Assessment/Plan (1) Acute appendicitis Current Visit: No Status: Acute Assessment & Plan: Patient is s/p day 2 laproscopic appendectomy. Patient would like to stay today due to abdominal pain s/p surgery. We will continue to manage his pain and monitor VS. Patient was seen by Surgery who recommended discharge today or tomorrow. Will need to pull JENNYFER drain prior to discharge per Surgery's recommendation. Dr Lr wrote scripts for [place] and Augmentin upon discharge. Code(s): K35.80 - UNSPECIFIED ACUTE APPENDICITIS (2) Uncontrolled type 2 diabetes mellitus Current Visit: No Status: Acute Assessment & Plan: Will continue to monitor BS and continue on home meds for DM Code(s): E11.65 - TYPE 2 DIABETES MELLITUS WITH HYPERGLYCEMIA (3) Hypertension Current Visit: Yes Status: Acute Assessment & Plan: Will continue to monitor and continue on home meds for HTN Code(s): I10 - ESSENTIAL (PRIMARY) HYPERTENSION
[2018-12-31] MEDS: Zosyn 3.375GM/100 Ml D5W 3.375 GM/100 ML IVPB IV SCH ×2 (00:02→05:58)
[2018-12-31] MEDS: NORCO 5/325 MG PO PRN (04:16)
[2018-12-31 05:04] LABS: Hematocrit 36.4 % (42-50); Hemoglobin 12.1 gm/dl (12.5-18.0); Mean Cell Volume 91.7 fl (78-100); Mean Corpuscular Hgb Concent. 33.2 g/dl (32-36); Mean Platelet Volume 8.9 fl (6-9.5); Platelet Count 358 K/mm3 (150-450); Red Blood Count 3.97 M/mm3 (4.1-5.6); Red Cell Distribution Width 11.7 % (11.5-14.0); White Blood Count 7.6 K/mm3 (4.0-10.5)
[2018-12-31 05:09] LABS: Mean Corpuscular Hemoglobin 30.4 pg (26-32)
[2018-12-31 07:50] VITALS: O2SAT 94
[2018-12-31] MEDS: Glucophage 500 MG PO SCH (08:04)
--- NOTE | 2018-12-31 08:53 | CONS ---
CONSULT DATE: 12/28/[address] Salmon's call day here. HISTORY OF PRESENT ILLNESS: 38 y/o gentleman has had a weak history of lower abdominal pain. Failed to improve. Ended up having a CT scan Dr. Molina ordered. Concerned the patient had abnormal appendix. [place] it was consistent with acute appendicitis per report. 16-17 mm periappendiceal stranding and a little bit of fluid around the area and a little bit of thickening of some bowel loops nearby that were felt reactive according to the radiologist. Otherwise, no free air or other collections. PAST MEDICAL HISTORY: Hypertension, diabetes. HOME MEDICATIONS: Prior to admission include, glyxambi, Zestril, gabapentin, Glucophage, and Lopressor. ALLERGIES: NKDA. FAMILY HISTORY: Multiple medical problems in his mother and father. SOCIAL HISTORY: No alcohol abuse. PAST SURGICAL HISTORY: He denied any abdominal surgery. Did have hand surgery in the past. REVIEW OF SYSTEMS: 14 systems reviewed. No chest pain or palpitations. Pertinent for lower abdominal complaints. No fever currently. He had a WBC of 8.5, Hgb 13.5, platelets 343,000. He denied any blood thinner use. No chest pain or palpitations. Liver function tests ere okay. PHYSICAL EXAMINATION: GENERAL: No acute distress. HEENT: Sclerae nonicteric. NECK: No JVD. CHEST: Equal excursion. Nonlabored breathing. ABDOMEN: Soft. Has had some mild tenderness in lower abdomen. No peritoneal signs. EXTREMITIES: No significant edema. NEURO: Alert and oriented, moving extremities grossly symmetrically. No gross motor deficit noted. IMPRESSION: 1. LOWER ABDOMINAL PAIN. CT scan is suspicious for acute appendicitis per the radiologist. Other differential could include gastroenteritis, inflammatory bowel disease, or other etiology. Either way, feel the patient would benefit from diagnostic laparoscopy, laparoscopic appendectomy, possible open. Risks and benefits explained in detail, but not limited to, bleeding; infection; risk of trocar injury or hernia; small risk of bowel, bladder, or blood vessel injury; small risk of subsequent intraabdominal abscess or fistula formation possibly requiring percutaneous or open drainage even at a later date; general risk of anesthesia, deep vein thrombosis, pulmonary embolism, or pneumonia; perioperative risks of aches, pains, bloating, constipation, ileus, or ongoing infection; possibility if find a normal appendix likely will remove incidentally and look for other etiology that might need taken care of surgically; may need further work-up or testing down the road. He is agreeable and will proceed with diagnostic laparoscopy, laparoscopic appendectomy, possible open when OR time available. Thank you for the consult.
--- NOTE | 2018-12-31 10:01 | OP ---
SURGERY DATE: 12/28/18 SURGERY TIME: 1634 PREOPERATIVE DIAGNOSIS: 1. ACUTE APPENDICITIS. POSTOPERATIVE DIAGNOSIS: 1. SUBACUTE PERFORATED APPENDICITIS. 2. EXTENSIVE PHLEGMON RIGHT LOWER QUADRANT. PROCEDURE: 1. LAPAROSCOPIC APPENDECTOMY, DIFFICULT. SURGEON: Dr. Pablito Jalloh. ANESTHESIA: General. ESTIMATED BLOOD LOSS: Less than 50 cc. INDICATIONS: As noted above. Risks and benefits explained in detail, but not limited to. Consent obtained. DESCRIPTION OF PROCEDURE AND FINDINGS: The patient had been having symptoms for a week or 8 or 9 days. It was felt he had appendicitis. It was felt he would benefit from appendectomy. Risks and benefits explained in detail, but not limited too. Consent obtained. The patient was taken to the OR. General anesthesia was induced. The abdomen was prepped and draped in the usual sterile fashion. After official time-out, no disagreement with the planned procedure. Had extensive phlegmon right lower quadrant with purulence. Small bowel was adhesed to the sidewall as well as it appeared that the appendix had been perforated up to the small bowel. Whether there was any fistulous communication was unclear. There was no evidence of any gross succus coming from the small bowel at this point. Had extensive phlegmon in the retroperitoneum. Slowly, carefully staying directly on what was felt to be the appendix, staying directly on its border using a ligature device, it was carefully mobilized upward. It required releasing the lateral attachments to the cecum and to the sidewall from the phlegmon reaction. This took quite some time. Added an additional 45 minutes to an hour to the usual case. Slowly, carefully, this appendix was taken back to its base at the cecum. Had quite a fat reaction and inflammatory phlegmon reaction around this requiring thinning out to allow for final access for it to be stapled. It was then stapled with the [employer] stapler as close to the base of the cecum as possible given the phlegmon reaction. It was felt it was taken right at the cecum. There was a weak spot in the staple line. It was felt it would be safer to laparoscopic suture this with some 3-0 Vicryl. The needle was retrieved and passed off. A copious amount of irrigation irrigating until clear. There appeared to be adequate hemostasis. The pus pocket had been irrigated out and the abscess cavity had been irrigated out. It was felt he would benefit from JENNYFER drain placed in the right lower quadrant out through the inferior 5 mm port site. Fascial defect 12 mm site closed with puncture closure device and #1 Vicryl. A copious amount of irrigation irrigating clear. There were no other visible abnormalities in the abdomen, just this extensive phlegmon from having appendicitis for 8 or 9 days adding probably an extra hour onto the usual procedure time. The patient tolerated the procedure well. There were no immediate complications. Drain was in good position. He transferred to recovery in stable condition. There was no family or friends available to discuss any findings with at this time.
[2018-12-31] MEDS: Zestril 5 MG PO SCH (10:45)
[2018-12-31] MEDS: Lopressor 25MG Tab PO SCH (10:46)
[2018-12-31] MEDS: NEURONTIN 300 MG PO SCH (10:46)
[2018-12-31 11:32] VITALS: BP 111/72; PULSE 95
--- NOTE | 2019-01-01 12:32 | PCM.DS ---
Discharge Summary Date of Admission: 12/28/18 12:30 Admitting Physician: GRACIELA QUILES Consults: Consults on Case 12/28/18 12:30 Consult Surgery ROUTINE Primary Care Provider: GRACIELA QIULES Allergies Allergies No Known Drug Allergies Allergy (Unverified 03/03/13 20:37) Hospital Summary - Hospital Course Hospital Course: Chief Complaint Diagnosis acute appendicitis Allergies Allergy/AdvReac Type Severity Reaction Status Date / Time No Known Drug Allergies Allergy Unverified 03/03/13 20:37 Home Medications Medication Instructions Recorded Confirmed Last Taken Type Empagliflozin/Linagliptin 1 tab PO DAILY 12/28/18 12/28/18 12/27/18 History [Glyxambi 25 mg-5 mg Tablet] Gabapentin 600 mg PO TID 12/28/18 12/28/18 12/27/18 History Lisinopril 5 mg [Zestril 5 2.5 mg PO DAILY 12/28/18 12/28/18 12/27/18 History MG] Metformin HCl 500 mg 1,000 mg PO BID 12/28/18 12/28/18 12/27/18 History [Glucophage 500 MG] Metoprolol Tartrate 25 mg 25 mg PO BID 12/28/18 12/28/18 12/27/18 History [Lopressor 25MG Tab] Amox Tr/Potass Clav. 875 mg 875 mg PO BID #10 tablet 12/31/18 Unknown Rx [Augmentin 875-125 Tablet] Hydrocodone/APAP 5-325 Tab^^^ 1 each PO Q4HPRN PRN #20 tablet 12/31/18 Unknown Rx [Tyler 5-325 Tablet^^^] MDD 6 Current Medications Discontinued Medications Generic Name Dose Route Start Last Admin Trade Name Freq PRN Reason Stop Dose Admin Hydrocodone Bitart/Acetaminophen 1 tab 12/28/18 20:21 12/31/18 04:16 Tyler 5/325 Mg PO 01/02/19 20:20 1 tab Q4H PRN PRN Administration PAIN Bupivacaine HCl Confirm 12/28/18 13:56 Sensorcaine 0.25% 10 Ml Administered 12/28/18 13:57 Dose 10 ml .ROUTE .STK-MED ONE Dexamethasone Sodium Phosphate Confirm 12/28/18 16:42 Decadron 4 Mg Inj Administered 12/28/18 16:43 Dose 4 mg .ROUTE .STK-MED ONE Enoxaparin Sodium 40 mg 12/29/18 13:00 12/30/18 12:43 Enoxaparin Sodium SQ 01/28/19 12:59 40 mg Q24H BARBARA Administration Fentanyl Citrate Confirm 12/28/18 16:30 Sublimaze 100 Mcg/2 Ml Administered 12/28/18 16:31 Dose 100 mcg .ROUTE .STK-MED ONE Fentanyl Citrate Confirm 12/28/18 18:29 Sublimaze 100 Mcg/2 Ml Administered 12/28/18 18:30 Dose 100 mcg .ROUTE .STK-MED ONE Gabapentin 600 mg 12/28/18 22:00 12/31/18 10:46 Neurontin 300 Mg PO 01/27/19 21:59 600 mg TID BARBARA Administration Hydromorphone HCl Confirm 12/28/18 18:30 Dilaudid 2 Mg Injection Administered 12/28/18 18:31 Dose 2 mg .ROUTE .STK-MED ONE Cefazolin Sodium/Dextrose 2 gm in 50 mls @ 100 mls/hr 12/28/18 14:00 06:01 Cefazolin 2 Gm-D5w Bag IV 01/27/19 13:59 100 mls/hr Q8HT BARBARA Administration Sodium Chloride 1,000 mls @ 50 mls/hr 12/28/18 12:45 12/28/18 13:55 Sodium Chloride 0.9% 1000 Ml IV 01/27/19 12:44 50 mls/hr .Q20H BARBARA Administration Lactated Ringer's Confirm 12/28/18 13:56 Lactated Ringers Administered 12/28/18 13:57 Dose 1,000 mls @ ud IV .STK-MED ONE Lactated Ringer's 1,000 mls @ 50 mls/hr 12/28/18 14:30 Lactated Ringers IV 01/27/19 14:29 .Q20H BARBARA Cefoxitin Sodium 2 gm in 50 mls @ 100 mls/hr 12/28/18 15:00 Mefoxin 2 Gm Premix IV 12/28/18 18:00 ONCALLTOOR BARBARA Potassium Chloride/Dextrose/Sod Cl 1,000 mls @ 100 mls/hr 12/28/18 20:30 12/10 05:11 D5w/0.45ns W/ 20meq Kcl 1000 Ml IV 01/27/19 20:29 100 mls/hr .Q10H BARBARA Administration Piperacillin Sod/Tazobactam Sod 3.375 gm in 100 mls @ 200 mls/hr 12/29/18 00: 00 12/31/18 05:58 Zosyn 3.375gm/100 Ml D5w IV 01/28/19 00:00 200 mls/hr Q6HT BARBARA Administration Insulin Aspart 0 unit 12/28/18 21:04 12/30/18 08:08 Novolog Insulin SQ 01/27/19 21:03 2 unit UD PRN Administration HYPERGLYCEMIA Ketorolac Tromethamine Confirm 12/28/18 16:42 Toradol 30 Mg Injection Administered 12/28/18 16:43 Dose 30 mg .ROUTE .STK-MED ONE Lisinopril 2.5 mg 12/29/18 10:00 12/31/18 10:45 Zestril 5 Mg PO 01/28/19 09:59 2.5 mg DAILY BARBARA Administration Metformin HCl 1,000 mg 12/29/18 08:00 12/31/18 08:04 Glucophage 500 Mg PO 01/28/19 07:59 1,000 mg BIDWM BARBARA Administration Metoprolol Tartrate 25 mg 12/28/18 22:00 12/31/18 10:46 Lopressor 25mg Tab PO 01/27/19 21:59 25 mg BID BARBARA Administration Miscellaneous Information 1 each 12/29/18 09:00 Medication Intervention MC 01/28/19 08:59 .RN TO CHECK WITH PT BARBARA Morphine Sulfate 2 mg 12/28/18 19:57 12/30/18 01:05 Morphine Sulfate 2 Mg Inj IV 01/02/19 19:56 2 mg Q1H/PRN PRN Administration PAIN Ondansetron HCl Confirm 12/28/18 16:42 Zofran 4 Mg/2 Ml Vial Administered 12/28/18 16:43 Dose 4 mg .ROUTE .STK-MED ONE Ondansetron HCl Confirm 12/28/18 18:46 Zofran 4 Mg/2 Ml Vial Administered 12/28/18 18:47 Dose 4 mg .ROUTE .STK-MED ONE Ondansetron HCl Confirm 12/28/18 19:16 Zofran 4 Mg/2 Ml Vial Administered 12/28/18 19:17 Dose 4 mg .ROUTE .STK-MED ONE Ondansetron HCl 4 mg 12/28/18 19:16 12/29/18 06:16 Zofran 4 Mg/2 Ml Vial IV 01/27/19 19:15 4 mg Q6H PRN PRN Administration NAUSEA/VOMITING Propofol Confirm 12/28/18 16:29 Diprivan 200 Mg/20 Ml Administered 12/28/18 16:30 Dose 200 mg IV .STK-MED ONE Rocuronium [place] Confirm 12/28/18 16:29 Zemuron 100 Mg/10 Ml Administered 12/28/18 16:30 Dose 30 mg .ROUTE .STK-MED ONE Rocuronium [place] Confirm 12/28/18 17:19 Zemuron 100 Mg/10 Ml Administered 12/28/18 17:20 Dose 30 mg .ROUTE .STK-MED ONE Succinylcholine Chloride Confirm 12/28/18 16:29 Quelicin Fliptop 200 Mg/10 Ml Administered 12/28/18 16:30 Dose 100 mg .ROUTE .STK-MED ONE Sugammadex Sodium Confirm 12/28/18 16:42 Bridion 200mg/2ml Administered 12/28/18 16:43 Dose 200 mg IV .STK-MED ONE Intake & Output (Last 24 hours) 12/30/18 12/31/18 01/01/19 01/02/19 11:59 11:59 11:59 11:59 Intake Total 4530 1160 Output Total 2265 1880 Balance 2265 -720 Patient Care Notes (Last 24 hours) 12/31/18 13:02 Nursing Note by Kristopher Callaway Late entry: [id number] JENNYFER was DC'd and intact, site dressed with telfa pad, gauze and tape Initialized on 12/31/18 13:02 - END OF NOTE Patient is discharged home, follow up with Dr Reagan as per appointment - Vitals & Intake/Output Vital Signs: Vital Signs Temperature 98.3 F 12/31/18 11:31 Pulse Rate 95 H 12/31/18 11:31 Respiratory Rate 18 12/31/18 11:31 Blood Pressure 111/72 12/31/18 11:31 O2 Sat by Pulse Oximetry 94 L 12/31/18 11:31 Oxygen-Last Documented O2 Percentage 4 Liters = 36% Intake & Output: Intake & Output 12/30/18 12/31/18 01/01/19 01/02/19 11:59 11:59 11:59 11:59 Intake Total 4530 1160 Output Total 2265 1880 Balance 2265 -720 - Lab Result Diagrams: 12/31/18 04:30 12/28/18 13:00 Discharge Exam General Appearance: no apparent distress, alert Neurologic Exam: alert, oriented x 3, cooperative, normal mood/affect, nml cerebellar function, sensation nml, No motor deficits Eye Exam: PERRL, EOMI, eyes nml inspection Ears, Nose, Throat Exam: normal ENT inspection, pharynx normal, moist mucous membranes Neck Exam: normal inspection, non-tender, supple, full range of motion Respiratory Exam: normal breath sounds, lungs clear, No respiratory distress Cardiovascular Exam: regular rate/rhythm, normal heart sounds Gastrointestinal/Abdomen Exam: soft, No tenderness, No mass Male Genitalia Exam: deferred Rectal Exam: deferred Back Exam: normal inspection, normal range of motion, No CVA tenderness, No vertebral tenderness Extremity Exam: normal inspection, normal range of motion Skin Exam: normal color, warm, dry Final Diagnosis/Problem List - Final Discharge Diagnosis/Problem (1) Acute appendicitis Status: Acute Assessment & Plan: Last Vital Signs Temp 98.3 F 12/31/18 11:31 Pulse 95 H 12/31/18 11:31 Resp 18 12/31/18 11:31 BP 111/72 12/31/18 11:31 Pulse Ox 94 L 12/31/18 11:31 Allergies No Known Drug Allergies Allergy (Unverified 03/03/13 20:37) Chief Complaint Diagnosis acute appendicitis Allergies Allergy/AdvReac Type Severity Reaction Status Date / Time No Known Drug Allergies Allergy Unverified 03/03/13 20:37 Home Medications Medication Instructions Recorded Confirmed Last Taken Type Empagliflozin/Linagliptin 1 tab PO DAILY 12/28/18 12/28/18 12/27/18 History [Glyxambi 25 mg-5 mg Tablet] Gabapentin 600 mg PO TID 12/28/18 12/28/18 12/27/18 History Lisinopril 5 mg [Zestril 5 2.5 mg PO DAILY 12/28/18 12/28/18 12/27/18 History MG] Metformin HCl 500 mg 1,000 mg PO BID 12/28/18 12/28/18 12/27/18 History [Glucophage 500 MG] Metoprolol Tartrate 25 mg 25 mg PO BID 12/28/18 12/28/18 12/27/18 History [Lopressor 25MG Tab] Amox Tr/Potass Clav. 875 mg 875 mg PO BID #10 tablet 12/31/18 Unknown Rx [Augmentin 875-125 Tablet] Hydrocodone/APAP 5-325 Tab^^^ 1 each PO Q4HPRN PRN #20 tablet 12/31/18 Unknown Rx [Tyler 5-325 Tablet^^^] MDD 6 Current Medications Discontinued Medications Generic Name Dose Route Start Last Admin Trade Name Freq PRN Reason Stop Dose Admin Hydrocodone Bitart/Acetaminophen 1 tab 12/28/18 20:21 12/31/18 04:16 Tyler 5/325 Mg PO 01/02/19 20:20 1 tab Q4H PRN PRN Administration PAIN Bupivacaine HCl Confirm 12/28/18 13:56 Sensorcaine 0.25% 10 Ml Administered 12/28/18 13:57 Dose 10 ml .ROUTE .STK-MED ONE Dexamethasone Sodium Phosphate Confirm 12/28/18 16:42 Decadron 4 Mg Inj Administered 12/28/18 16:43 Dose 4 mg .ROUTE .STK-MED ONE Enoxaparin Sodium 40 mg 12/29/18 13:00 12/30/18 12:43 Enoxaparin Sodium SQ 01/28/19 12:59 40 mg Q24H BARBARA Administration Fentanyl Citrate Confirm 12/28/18 16:30 Sublimaze 100 Mcg/2 Ml Administered 12/28/18 16:31 Dose 100 mcg .ROUTE .STK-MED ONE Fentanyl Citrate Confirm 12/28/18 18:29 Sublimaze 100 Mcg/2 Ml Administered 12/28/18 18:30 Dose 100 mcg .ROUTE .STK-MED ONE Gabapentin 600 mg 12/28/18 22:00 12/31/18 10:46 Neurontin 300 Mg PO 01/27/19 21:59 600 mg TID BARBARA Administration Hydromorphone HCl Confirm 12/28/18 18:30 Dilaudid 2 Mg Injection Administered 12/28/18 18:31 Dose 2 mg .ROUTE .STK-MED ONE Cefazolin Sodium/Dextrose 2 gm in 50 mls @ 100 mls/hr 12/28/18 14:00 06:01 Cefazolin 2 Gm-D5w Bag IV 01/27/19 13:59 100 mls/hr Q8HT BARBARA Administration Sodium Chloride 1,000 mls @ 50 mls/hr 12/28/18 12:45 12/28/18 13:55 Sodium Chloride 0.9% 1000 Ml IV 01/27/19 12:44 50 mls/hr .Q20H BARBARA Administration Lactated Ringer's Confirm 12/28/18 13:56 Lactated Ringers Administered 12/28/18 13:57 Dose 1,000 mls @ ud IV .STK-MED ONE Lactated Ringer's 1,000 mls @ 50 mls/hr 12/28/18 14:30 Lactated Ringers IV 01/27/19 14:29 .Q20H BARBARA Cefoxitin Sodium 2 gm in 50 mls @ 100 mls/hr 12/28/18 15:00 Mefoxin 2 Gm Premix IV 12/28/18 18:00 ONCALLTOOR BARBARA Potassium Chloride/Dextrose/Sod Cl 1,000 mls @ 100 mls/hr 12/28/18 20:30 12/10 05:11 D5w/0.45ns W/ 20meq Kcl 1000 Ml IV 01/27/19 20:29 100 mls/hr .Q10H BARBARA Administration Piperacillin Sod/Tazobactam Sod 3.375 gm in 100 mls @ 200 mls/hr 12/29/18 00: 00 12/31/18 05:58 Zosyn 3.375gm/100 Ml D5w IV 01/28/19 00:00 200 mls/hr Q6HT BARBARA Administration Insulin Aspart 0 unit 12/28/18 21:04 12/30/18 08:08 Novolog Insulin SQ 01/27/19 21:03 2 unit UD PRN Administration HYPERGLYCEMIA Ketorolac Tromethamine Confirm 12/28/18 16:42 Toradol 30 Mg Injection Administered 12/28/18 16:43 Dose 30 mg .ROUTE .STK-MED ONE Lisinopril 2.5 mg 12/29/18 10:00 12/31/18 10:45 Zestril 5 Mg PO 01/28/19 09:59 2.5 mg DAILY BARBARA Administration Metformin HCl 1,000 mg 12/29/18 08:00 12/31/18 08:04 Glucophage 500 Mg PO 01/28/19 07:59 1,000 mg BIDWM BARBARA Administration Metoprolol Tartrate 25 mg 12/28/18 22:00 12/31/18 10:46 Lopressor 25mg Tab PO 01/27/19 21:59 25 mg BID BARBARA Administration Miscellaneous Information 1 each 12/29/18 09:00 Medication Intervention MC 01/28/19 08:59 .RN TO CHECK WITH PT BARBARA Morphine Sulfate 2 mg 12/28/18 19:57 12/30/18 01:05 Morphine Sulfate 2 Mg Inj IV 01/02/19 19:56 2 mg Q1H/PRN PRN Administration PAIN Ondansetron HCl Confirm 12/28/18 16:42 Zofran 4 Mg/2 Ml Vial Administered 12/28/18 16:43 Dose 4 mg .ROUTE .STK-MED ONE Ondansetron HCl Confirm 12/28/18 18:46 Zofran 4 Mg/2 Ml Vial Administered 12/28/18 18:47 Dose 4 mg .ROUTE .STK-MED ONE Ondansetron HCl Confirm 12/28/18 19:16 Zofran 4 Mg/2 Ml Vial Administered 12/28/18 19:17 Dose 4 mg .ROUTE .STK-MED ONE Ondansetron HCl 4 mg 12/28/18 19:16 12/29/18 06:16 Zofran 4 Mg/2 Ml Vial IV 01/27/19 19:15 4 mg Q6H PRN PRN Administration NAUSEA/VOMITING Propofol Confirm 12/28/18 16:29 Diprivan 200 Mg/20 Ml Administered 12/28/18 16:30 Dose 200 mg IV .STK-MED ONE Rocuronium [place] Confirm 12/28/18 16:29 Zemuron 100 Mg/10 Ml Administered 12/28/18 16:30 Dose 30 mg .ROUTE .STK-MED ONE Rocuronium [place] Confirm 12/28/18 17:19 Zemuron 100 Mg/10 Ml Administered 12/28/18 17:20 Dose 30 mg .ROUTE .STK-MED ONE Succinylcholine Chloride Confirm 12/28/18 16:29 Quelicin Fliptop 200 Mg/10 Ml Administered 12/28/18 16:30 Dose 100 mg .ROUTE .STK-MED ONE Sugammadex Sodium Confirm 12/28/18 16:42 Bridion 200mg/2ml Administered 12/28/18 16:43 Dose 200 mg IV .STK-MED ONE Intake & Output (Last 24 hours) 12/30/18 12/31/18 01/01/19 01/02/19 11:59 11:59 11:59 11:59 Intake Total 4530 1160 Output Total 2265 1880 Balance 2265 -720 Patient Care Notes (Last 24 hours) 12/31/18 13:02 Nursing Note by Kristopher Callaway Late entry: 1140 JENNYFER was DC'd and intact, site dressed with telfa pad, gauze and tape Initialized on 12/31/18 13:02 - END OF NOTE Code(s): K35.80 - UNSPECIFIED ACUTE APPENDICITIS (2) Hypertension Status: Acute Code(s): I10 - ESSENTIAL (PRIMARY) HYPERTENSION (3) Uncontrolled type 2 diabetes mellitus Status: Acute Code(s): E11.65 - TYPE 2 DIABETES MELLITUS WITH HYPERGLYCEMIA - Discharge Discharge Date: 12/31/18 Disposition: Home, Self-Care Condition: Stable Prescriptions: New Amox Tr/Potass Clav. 875 mg [Augmentin 875-125 Tablet] 875 mg PO BID # 10 tablet Hydrocodone/APAP 5-325 Tab^^^ [Tyler 5-325 Tablet^^^] 1 each PO Q4HPRN PRN # 20 tablet MDD 6 PRN Reason: Pain Continue Metformin HCl 500 mg [Glucophage 500 MG] 1,000 mg PO BID Empagliflozin/Linagliptin [Glyxambi 25 mg-5 mg Tablet] 1 tab PO DAILY Lisinopril 5 mg [Zestril 5 MG] 2.5 mg PO DAILY Gabapentin 600 mg PO TID Metoprolol Tartrate 25 mg [Lopressor 25MG Tab] 25 mg PO BID Instructions: Appendectomy, Laparoscopic Surgery (DC) Follow up with: ANNABEL REAGAN [COURTESY STAFF] - 01/07/19 8:00 am (Appt at [place] office at [facility] Specialty clinic) GRACIELA QUILES MD [Primary Care Provider] - 1 Week Forms: Discharge Instructions
== END 2018-12-31 12:18 | disposition home or self-care (01) ==
LOC: MED SURG 12:30
PROVIDERS: ADMIT General Practice; ATTEND General Practice
DX: K35.33 Acute appendicitis with perforation, localized peritonitis, and gangrene, with abscess (principal); I10 Essential (primary) hypertension; E11.65 Type 2 diabetes mellitus with hyperglycemia; Z79.899 Other long term (current) drug therapy
CPT/HCPCS: 36415; 44970; 80053; 81001; 82150; 82962; 83036; 85025; 85027; G0378; 99140; J0330; J0690; J1100; J1170; J1650; J1885; J2270; J2405; J2543; J2704; J3010; A9270-GY